=== PATIENT | male | born 1965 | race Caucasian/White ===

== ENCOUNTER 2017-11-06 11:13 | Outpatient (CLI) | payer BC ==
--- NOTE | 2017-11-06 15:53 | CT ---
CT BRAIN WITHOUT CONTRAST: HISTORY: Right-sided weakness. FINDINGS: There is encephalomalacia in the left MCA territory, consistent with an old infarction. Mild compens atory ipsilateral dilatation of the left lateral ventricle is seen. No evidence of acute infarct, he morrhage, midline shift, or abnormal extraaxial fluid collections is noted. The bony calvarium is in tact. There is mild mucosal disease in the paranasal sinuses. IMPRESSION: 1. 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 2. No evidence of acute intracranial process. This study was interpreted in consultation with Dr. Derick Beavers (neuroradiologist), who concurs. POS: [facility]
--- NOTE | 2017-11-16 13:47 | EEG ---
Referring Physician: DR. JEY MONTE EEG # [id number] PROCEDURE: Outpatient electroencephalogram NAME OF PATIENT: Tal Bahena DATE EEG DONE: 11/06/2017. INDICATION: Seizures. REPORT: This is a 22-channel digital EEG recording utilizing 10-20 international electrode placement system on a patient with stroke with right hemiparesis with subsequent seizures. During wakefulness, the background activity is asymmetric between 2 hemispheres. In the right hemisphere, the background activity consists of low to moderate amplitude dominant alpha rhythm of 8-9 Hz, it is reactive. In the left hemisphere, the background activity consists of low to moderate amplitude theta activity of 5-6 Hz mixed with myogenic activity, it is reactive in nature. DROWSINESS AND SLEEP: Subject is able to attain periods of drowsiness with decreased myogenic activity and diffuse theta activity, there is no clear sleep recorded during this EEG, left hemisphere slowing is noted. ABNORMALITIES: Slowing noted in the left hemisphere throughout the EEG, however , no clear epileptiform activity noted. No electrographic seizures noted. INDUCTION: HYPERVENTILATION: Could not be performed. PHOTIC STIMULATION: No photic drive seen. EK per minute. IMPRESSION: This EEG is considered abnormal. There is nonspecific dysfunction noted in the left cerebral hemisphere, underlying structural pathology should be considered. However, there is no clear epileptiform activity noted. No electrographic seizures noted. Clinical correlation recommended. Operational Risk Analyst:EUNICE Roller Maker: EEG.ABHINAV MARSHALL
== END 2017-11-06 11:14 | disposition home or self-care (01) ==
LOC: EEG 11:13
PROVIDERS: ATTEND Student in an Organized Health Care Education/Training Program
DX: I63.9 Cerebral infarction, unspecified (principal); M62.81 Muscle weakness (generalized)
CPT/HCPCS: 70450; 95816

== ENCOUNTER 2018-06-04 19:47 | Observation (INO) | payer BC, MEDICARE ==
[2018-06-04] MEDS ORDERED: Lidocaine 1% w/Epinephrine 1:100K 20 ML VIAL ONE (21:10)
--- NOTE | 2018-06-04 21:53 | CT ---
CT OF BRAIN PERFORMED WITHOUT CONTRAST ENHANCEMENT: 06/04/18 HISTORY: Head injury status post fall. COMPARISON: 11/06/17 study. Encephalomalacia change in the left middle cerebral artery territory is again noted. There is signs o f intracerebral hemorrhage or extra-axial fluid collections. Mastoid air cells and visualized sinuses are clear. IMPRESSION: 1. No acute intracranial abnormalities. 2. Old left MCA infarct. POS: [facility]
[2018-06-04 22:03] LABS: #Basophils 0.1 thou/uL (0.0-0.2); #Lymphocytes 1.8 thou/uL (1.20-3.40); #Monocytes 1.1 thou/uL (0.11-0.59); #Neutrophils 9.8 thou/uL (1.40-6.50); %Basophils 0.5 % (0.0-1.0); %Eosinophils 0.3 % (0.0-10.0); %Lymphocytes 13.9 % (21.0-51.0); %Monocytes 8.8 % (0.0-10.0); %Neutrophils 76.4 % (42.0-75.0); Hemoglobin 16.1 g/dL (14.0-18.0); Mean Corpuscular HGB CONC 33.8 g/dL (32.0-36.0); Mean Corpuscular Hemoglobin 30.2 pg (27.0-31.0); Mean Corpuscular Volume 89.6 fL (78.0-98.0); Mean Platelet Volume 8.3 fL (7.4-10.4); Platelet Count 226 thou/uL (130-400); RBC Distribution Width 12.9 % (11.5-14.5); Red Blood Cell (RBC) Count 5.33 mill/uL (4.70-6.10); White Blood Cell (WBC) Count 12.8 thou/uL (4.8-10.8)
--- NOTE | 2018-06-04 22:17 | RAD ---
RIGHT TIBIA AND FIBULA THREE VIEWS: 06/04/18 HISTORY: Patient fell down stairs. The bones appear slightly demineralized. I do not see any signs of fracture or dislocation. Vascular calcifications are noted. IMPRESSION: No evidence of fracture. POS: [facility]
[2018-06-04 22:24] LABS: ALT (SGPT) 68 U/L (8-55); AST (SGOT) 46 U/L (5-34); Albumin 4.7 g/dL (3.5-5.0); Alkaline Phosphatase 111 U/L (40-150); Anion Gap 15 mmol/L (10-20); BUN (Urea Nitrogen) 12 mg/dL (8.4-25.7); Calc. Creatinine Clearance 0 mL/min (70-130); Calcium 9.5 mg/dL (7.8-10.44); Carbon Dioxide 22 mmol/L (22-29); Chloride 106 mmol/L (98-107); Estimated GFR-MDRD Greater than 90; Globulin 2.6 g/dL (2.4-3.5); Glucose 146 mg/dL (70-105); Protein, Total 7.3 g/dL (6.0-8.3); Sodium 139 mmol/L (136-145)
[2018-06-04 22:26] LABS: INR-International Normal Ratio 1.9; PTT 33.5 SEC (22.9-36.1); Prothrombin Time 22.3 SEC (12.0-14.7)
[2018-06-04] MEDS ORDERED: HYDROcodone/Acetaminophen 10/325 mg Tablet ONE (22:53)
[2018-06-05] MEDS ORDERED: Ondansetron HCl/PF 4 MG/2 ML Vial IVP PRN ×2 (01:41→02:34)
[2018-06-05] MEDS ORDERED: Ondansetron ODT 4 MG TAB SL PRN (01:41)
[2018-06-05] MEDS ORDERED: HYDROcodone/Acetaminophen 5/325 mg Tablet PO PRN ×2 (01:41)
[2018-06-05 02:08] VITALS: BMI 26.1
[2018-06-05] MEDS ORDERED: Benzonatate 100 MG CAP PO PRN (02:34)
[2018-06-05] MEDS ORDERED: Senokot 8.6 MG TAB PO PRN (02:34)
[2018-06-05] MEDS ORDERED: Bisacodyl 5 MG TAB PO PRN (02:34)
[2018-06-05] MEDS ORDERED: Diabetic Tussin 200 MG/10 ML UDCUP PO PRN (02:34)
[2018-06-05] MEDS ORDERED: Acetaminophen 325 MG TAB PO PRN (02:34)
[2018-06-05] MEDS ORDERED: hydrALAZINE 20 MG/ML VIAL SLOW IVP PRN (02:34)
[2018-06-05] MEDS ORDERED: Mag-Al 1200 mg/1200 mg/30 ML UDCUP PO PRN (02:34)
[2018-06-05] MEDS ORDERED: Loratadine 10 MG TAB PO PRN (02:34)
[2018-06-05] MEDS ORDERED: Calcium Carbonate 500 MG ChewTAB PO PRN (02:34)
--- NOTE | 2018-06-05 03:51 | HP ---
DATE OF ADMISSION: 06/05/2018 PRIMARY CARE PHYSICIAN: Dr. Kennedy Watkins. CHIEF COMPLAINT: Falls and near syncope. HISTORY OF PRESENTING ILLNESS: Mr. Bahena is a very pleasant 52-year-old male with past medical histo ry of CVA in 2014 after aortic valve surgery with residual right-sided hemiparesis who presented to [facility] ER with the above-mentioned complaint. History is mainly obtained by the patient himself and supp lemented by his mother present in the room. According to Mr. Bahena, he uses a walker and a cane at the house to move around. Yesterday evening w hile he was going down to stairs, he had a mechanical fall in the last step. He does not use the can e to go up and down the stairs, but uses to hold with the railing. He denies any chest pain, palpita tion, any prodromal symptoms. He denies any loss of consciousness. He denies any recent illnesses o r new symptoms. He presented to the ER, as he is on Coumadin and has sustained a scalp laceration. In the emergency room, he was hemodynamically stable with a blood pressure 103/70, pulse of 82, respi rations 20, saturating 95% on room air and afebrile. General evaluation included CT scan of the head , which was unremarkable. He was given pain medications. His labs were checked and his INR is 1.9. He does have evidence of mild leukocytosis with WBCs of 12 .8 with 76% neutrophils. His AST and ALT are mildly elevated at 46 and 68. He is now being admitted under observation status for repeat CT scan of the brain in the morning, as he is on Coumadin and for frequent neuro checks. At this time, it is not clear whether he actually l ost consciousness and was presyncopal. PAST MEDICAL HISTORY: 1. History of CVA in 2015 after aortic valve surgery. 2. Aortic valve replacement. 3. History of seizure disorder. PAST SURGICAL HISTORY: Aortic valve replacement in 2014 at [facility]. SOCIAL HISTORY: He lives at home with family. No history of drug, tobacco, or alcohol abuse. FAMILY HISTORY: No significant family history of premature coronary artery disease, diabetes, or can cer. ALLERGIES: PENICILLIN. CURRENT MEDICATIONS: Atorvastatin 40 mg daily, aspirin 81 mg daily, Baclofen 10 mg p.o. b.i.d., calc ium carbonate 600 mg daily, cholecalciferol 1 tablet daily, Keppra 1000 mg p.o. b.i.d., multivitamin daily, and warfarin 3 mg daily. REVIEW OF SYSTEMS: A 10-point review of systems is done and is negative except for those mentioned i n the history and physical. Constitutional: Weight loss or gain, ability to conduct usual activitie s. Skin: Rash, itching. Eyes: Double vision, pain. ENT/Mouth: Nose bleeding, neck stiffness, pa in, tenderness. Cardiovascular: Palpitations, dyspnea on exertion, orthopnea. Respiratory: Shortn ess of breath, wheezing, cough, hemoptysis, fever, or night sweats. Gastrointestinal: Poor appetite , abdominal pain, heartburn, nausea, vomiting, constipation, or diarrhea. Genitourinary: Urgency, f requency, dysuria, nocturia. Musculoskeletal: Pain, swelling. Neurologic/Psychiatric: Anxiety, de pression. Allergy/Immunologic: Skin rash, bleeding tendency. LABORATORY EXAMINATION: CBC shows WBCs 12.8 with 76% neutrophils. INR 1.9. Serum chemistry: Gluco se 146, AST, ALT mildly elevated at 46 and 68 respectively with normal total bilirubin, alkaline phos phatase. CT scan of the brain by my review has no evidence of any hemorrhage, mass, or acute infarct ion. X-ray of his tibia and fibula of the right side is negative for any fracture. PHYSICAL EXAMINATION: VITAL SIGNS: Most recent vital signs: Temperature 98.7, pulse of 88, respirations 22, saturating 10 0% on room air, blood pressure 116/76. GENERAL: No acute distress. Awake, alert, oriented x3. Family is at bedside. HEENT: Mucous membranes slightly dry. No oropharyngeal exudate or erythema. Head is normocephalic, atraumatic. Pupils equal, reactive to light and accommodation. A 3.5 cm scalp laceration is notice d. NECK: Supple without any lymphadenopathy, JVD, or bruit. CHEST: Clear to auscultation without any wheezing, rales, or rhonchi. CARDIOVASCULAR: Rhythm is regular without any murmur, rubs, or gallops. ABDOMEN: Soft, nontender, nondistended with positive bowel sounds. EXTREMITIES: Free of any cyanosis, clubbing, or edema. NEUROLOGIC: Dense right-sided hemiparesis involving the right arm and right leg is noticed. He also has difficulty with his speech with some halting speech, but no significant expressive aphasia notic ed. SKIN: No Free of any rashes or bruises. Feels warm and dry to touch. PSYCHIATRIC: Normal affect. IMPRESSION AND PLAN: 1. Near syncope. At this time, it is unclear whether the patient lost the consciousness or not. Gi elvis the fact that he has aortic valvular surgery and history of stroke. He will be admitted for obse rvation status. We will obtain a transthoracic echocardiogram and obtain a carotid Doppler ultrasoun d. We will repeat the CT scan of the brain in the morning, as the patient is on Coumadin. He will r equire frequent neuro checks. We will also obtain the urinalysis and obtain cardiac enzymes as well. There was no evidence of seizure episodes at this time. We will resume his Keppra for now. 2. History of stroke. Restart aspirin with statins. 3. History of aortic valve replacement. Restart Coumadin and recheck INR in the morning. 4. History of seizure disorder. Resume Keppra for now. No evidence of any breakthrough seizure. 5. Deep venous thrombosis and gastrointestinal prophylaxis. 6. Code status: FULL CODE discussed with the patient. DISPOSITION: Mr. Bahena is currently being admitted on observation status for neurological observatio n. He is currently under observation status. Further management will depend upon his clinical cours e.
[2018-06-05] MEDS: traMADol HCl 50 MG TAB PO PRN ×3 (03:54→22:05)
[2018-06-05 05:28] LABS: #Lymphocytes 0.9 thou/uL (1.20-3.40); #Monocytes 0.9 thou/uL (0.11-0.59); #Neutrophils 11.8 thou/uL (1.40-6.50); %Lymphocytes 6.3 % (21.0-51.0); %Monocytes 6.5 % (0.0-10.0); %Neutrophils 87.2 % (42.0-75.0); Hemoglobin 14.9 g/dL (14.0-18.0); Mean Corpuscular HGB CONC 34.5 g/dL (32.0-36.0); Mean Corpuscular Hemoglobin 30.6 pg (27.0-31.0); Mean Corpuscular Volume 88.7 fL (78.0-98.0); Mean Platelet Volume 7.9 fL (7.4-10.4); Platelet Count 217 thou/uL (130-400); RBC Distribution Width 12.9 % (11.5-14.5); Red Blood Cell (RBC) Count 4.88 mill/uL (4.70-6.10); White Blood Cell (WBC) Count 13.5 thou/uL (4.8-10.8)
[2018-06-05 05:33] LABS: INR-International Normal Ratio 1.9; Prothrombin Time 21.4 SEC (12.0-14.7)
[2018-06-05 05:40] LABS: Anion Gap 15 mmol/L (10-20); BUN (Urea Nitrogen) 13 mg/dL (8.4-25.7); Calc. Creatinine Clearance 108 mL/min (70-130); Calcium 9.3 mg/dL (7.8-10.44); Carbon Dioxide 24 mmol/L (22-29); Chloride 105 mmol/L (98-107); Estimated GFR-MDRD 85; Glucose 152 mg/dL (70-105); Potassium 4.7 mmol/L (3.5-5.1); Sodium 139 mmol/L (136-145)
[2018-06-05 05:45] LABS: Troponin I Less than 0.010 ng/mL (< 0.028)
[2018-06-05] MEDS: Multivitamin W/ Minerals 1 TAB PO SCH (08:43)
[2018-06-05] MEDS: Baclofen 10 MG TAB PO SCH ×3 (08:43→22:06)
[2018-06-05] MEDS: levETIRAcetam 500 MG TAB PO SCH ×2 (08:43→22:04)
[2018-06-05] MEDS: Calcium Carbonate 600 MG TAB PO SCH (08:43)
[2018-06-05] MEDS ORDERED: Enoxaparin Sodium 40 MG/0.4 ML SYRINGE SC SCH (09:00)
--- NOTE | 2018-06-05 12:15 | PDOC.PN ---
- Subjective Encounter Start Date: 06/05/18 Encounter Start Time: 12:12 Mr. Bahena was seen today in follow-up of recent fall while on coumadin. He is complaining of some pain in his right leg. He denies any headache, or feeling dizzy or lightheaded. He denies chest pain or dyspnea. - Objective MAR Reviewed: Yes Vital Signs & Weight: Vital Signs (12 hours) Temp Pulse Resp BP Pulse Ox 06/05/18 08:00 97.6 F 108 H 16 120/77 90 L 06/05/18 03:15 97.9 F 107 H 20 98/67 91 L 06/05/18 02:06 98.7 F 88 22 H 116/76 100 06/05/18 01:25 97.9 F 107 H 20 Weight Weight 180 lb 14.4 oz I&O: 06/04/18 06/05/18 06/06/18 06:59 06:59 06:59 Intake Total 360 Output Total 50 Balance 310 Result Diagrams: 06/05/18 05:06 06/05/18 05:06 Phys Exam - Physical Examination HEENT: PERRLA Respiratory: no wheezing, no rales, no rhonchi, clear to auscultation bilateral Cardiovascular: RRR, no significant murmur, no rub Gastrointestinal: soft, non-tender, positive bowel sounds Musculoskeletal: no edema Dx/Plan (1) Fall (on) (from) other stairs and steps, initial encounter Code(s): W10.8XXA - FALL (ON) (FROM) OTHER STAIRS AND STEPS, INITIAL ENCOUNTER Status: Acute (2) History of aortic valve replacement Code(s): Z95.2 - PRESENCE OF PROSTHETIC HEART VALVE Status: Acute (3) Chronic anticoagulation Code(s): Z79.01 - AIRSET MOLDER (CURRENT) USE OF ANTICOAGULANTS Status: Acute - Plan * Fall- in hearing the patient's story, it sounds like he had an accidental fall and not syncope. * Awaiting the Radiologist read on the CT scan of the brain - repeat- * Echo and carotid dopplers are pending * He has a rapid heart rate when he stands, it is narrow complex, and regular- I suspect sinus tachycardia, but AFIB can not be excluded- will check a 12 lead , and see. If it is sinus then would recommend close follow-up with Dr. Morton for possible event or holter monitor * Hopefully home this evening.
--- NOTE | 2018-06-05 12:52 | CT ---
BRAIN CT SCAN WITHOUT IV CONTRAST: HISTORY: A 52-year-old male with a history of a fall while on blood thinners. COMPARISON: 06/04/2018 FINDINGS: Again noted is a large area of encephalomalacia in the left middle cerebral artery distribution, with some dilatation of the left lateral ventricle. No mass or significant midline shift. No acute hemo rrhage. IMPRESSION: No acute hemorrhage. Large left middle cerebral artery distribution infarct. Stable from prior 05/10 study. POS: [facility]
--- NOTE | 2018-06-05 13:12 | ULT ---
CAROTID DOPPLER ULTRASOUND: 06/05/2018 HISTORY: Syncope. TECHNIQUE: Carcamo-scale, color-flow, Doppler evaluation, and spectral analysis of the bilateral carotid arteries i s performed with 2D imaging. FINDINGS: There is mild calcified atherosclerotic plaque seen within the distal common carotid arteries and in the region of the proximal internal carotid arteries, bilaterally. Wave-form analysis suggests a mild increase in heart rate, but this would be better assessed clinical ly, as it is unable to be adequately evaluated on this exam. There is less than 50% maximal stenosis in the bilateral internal carotid arteries, according to the peak systolic velocities and the ICA/CC A ratios. The peak systolic velocity in the right ICA is 64.3 cm per second with an ICA/CCA ratio of 0.98. The peak systolic velocity in the left ICA is 49.9 cm per second, with an ICA/CCA ratio of 0. 69. Antegrade flow is demonstrated in the vertebral arteries bilaterally. IMPRESSION: No hemodynamically significant stenosis in the bilateral internal carotid arteries. POS: [facility]
[2018-06-05] MEDS ORDERED: Tamsulosin HCl 0.4 MG CAP PO SCH ×2 (16:30→17:15)
[2018-06-05] MEDS ORDERED: Warfarin Sodium 3 MG TAB PO SCH (17:00)
[2018-06-05 17:35] LABS: Bilirubin Moderate (Negative); Blood, Urine Large (Negative); Clarity TURBID (Clear); Glucose, Urine (Dipstick) Negative (Negative); Leukocyte Small (Negative); Nitrite Negative (Negative); Protein, Urine (Dipstick) 100 mg/dL (Neg-Trace); Specific Gravity, Urine 1.033 (1.002-1.036); Urobilinogen 0.2 mg/dL (0.2-1.0); pH, Urine 5.5 (5.0-9.0)
[2018-06-05 17:38] LABS: Bacteria/HPF None Seen HPF (None Seen); Hyaline Casts/LPF 0-3 HYALINE CAST LPF (0-3 Hyaline); Pathc Cast-AUWi Flag 0.36 (0-2.49); RBC/HPF GREATER THAN 50-TNTC HPF (0-3); Squamous Epithelial 0-3 HPF (0-3)
[2018-06-05] MEDS ORDERED: Atorvastatin Calcium 40 MG TAB PO SCH (21:00)
[2018-06-06 05:39] LABS: Prothrombin Time 23.1 SEC (12.0-14.7)
--- NOTE | 2018-06-06 06:08 | DIS ---
DATE OF ADMISSION: 06/05/2018 DATE OF DISCHARGE: 06/05/2018 PRIMARY CARE PHYSICIAN: Kennedy Watkins D.O. DISCHARGE DISPOSITION: Home. PRIMARY DISCHARGE DIAGNOSES: 1. Accidental fall. 2. Chronic anticoagulation on Coumadin. 3. History of previous cerebrovascular accident. 4. History of aortic valve replacement with mechanical prosthetic valve. 5. History of seizure disorder. 6. Volume depletion. DISCHARGE MEDICATIONS: These are the same as that on admission and include warfarin 3 mg as directed , multivitamin daily, Keppra 1000 mg twice daily, vitamin D 1000 units daily, calcium 600 mg daily, b aclofen 10 mg twice a day, Lipitor 40 mg daily, and aspirin 81 mg a day. PROCEDURES DONE DURING ADMISSION: The patient had a CT scan of the brain on the and no evidence of any acute bleed. The patient had a repeat CT scan the following day with no evidence of any blee d. The patient had a bilateral carotid Dopplers showing no hemodynamically significant stenosis. He also had an echocardiogram in which the ejection fraction was estimated at 60%-65%. There was a bio prosthetic valve, it is mechanical type that was not well seen. The gradient to the valve did not licea ggest stenosis and there was mild tricuspid regurgitation. CODE STATUS: FULL CODE. ALLERGIES: PENICILLIN. HOSPITAL COURSE: Mr. Bahena is a pleasant 52-year-old gentleman who presented to the emergency room a fter suffering a fall which was accidental. He was coming down the stairs and fell off the lower rd p, no evidence of any syncope. However, since he is on Coumadin and there was concern that he hit hi s head, he was monitored in the hospital in observation overnight. There was no neurological decline . The CT scan was negative on the following day. He had some variable heart rate, which appears to be sinus tachycardia. He was instructed to follow up with his nail technician teacher, Dr. Morton to have this evaluated as it is unclear whether or not this could be a supraventricular tachycardia and his heart rates did bounce up as high as 120s and 130s, but will quickly come back down. This was also mostly when he was up moving around. Otherwise, the patient was clinically stable and can be discharged rhea e today.
[2018-06-06 07:44] VITALS: BP 108/59; TEMP 98.4
[2018-06-06] MEDS: traMADol HCl 50 MG TAB PO PRN (08:48)
[2018-06-06] MEDS: levETIRAcetam 500 MG TAB PO SCH (08:49)
[2018-06-06] MEDS: Multivitamin W/ Minerals 1 TAB PO SCH (08:49)
[2018-06-06] MEDS: Calcium Carbonate 600 MG TAB PO SCH (08:49)
[2018-06-06] MEDS: Baclofen 10 MG TAB PO SCH (08:52)
[2018-06-06] MEDS ORDERED: Tamsulosin HCl 0.4 MG CAP PO SCH (09:00)
--- NOTE | 2018-06-07 13:36 | EKG ---
Test Reason : ROUTINE Blood Pressure : / mmHG Vent. Rate : 104 BPM Atrial Rate : 104 BPM P-R Int : 218 ms QRS Dur : 100 ms QT Int : 312 ms P-R-T Axes : 022 -02 153 degrees QTc Int : 410 ms Sinus tachycardia with 1st degree A-V block Possible Inferior infarct , age undetermined Abnormal ECG No previous ECGs available Confirmed by DR. Mat CHOUDHURY MD ([id number]) on 06/07/2018 1:35:32 PM Referred By: Confirmed By:DR. Mat CHOUDHURY MD
== END 2018-06-06 09:59 | disposition home or self-care (01) ==
LOC: ERS 19:47 → 2SE 06-05 01:09
PROVIDERS: ADMIT Internal Medicine; ATTEND Internal Medicine
DX: R55 Syncope and collapse (principal); I69.351 Hemiplegia and hemiparesis following cerebral infarction affecting right dominant side; G40.909 Epilepsy, unspecified, not intractable, without status epilepticus; E86.9 Volume depletion, unspecified; Z79.82 Long term (current) use of aspirin; Z79.01 Long term (current) use of anticoagulants; Z79.899 Other long term (current) drug therapy; Z88.0 Allergy status to penicillin; Z95.2 Presence of prosthetic heart valve; W10.8XXA Fall (on) (from) other stairs and steps, initial encounter
CPT/HCPCS: 12002; 70450 ×2; 73590; 80048; 80053; 81001; 82553; 84484; 85025 ×2; 85610 ×3; 85730; 93005; 93306; 93880; 96374; 97139; 99285; G0378; 36415; 93010; A4216; J2001; J2270; Q0162

== ENCOUNTER 2018-06-07 16:11 | Outpatient (CLI) | payer MEDICARE | END 2018-06-07 16:12 | disposition home or self-care (01) | LOC: BICRAD 16:11 | PROVIDERS: ATTEND Family Medicine | DX: S30.0XXD Contusion of lower back and pelvis, subsequent encounter (principal); M87.851 Other osteonecrosis, right femur; M16.11 Unilateral primary osteoarthritis, right hip ==

== ENCOUNTER 2018-06-16 12:27 | Outpatient (CLI) | payer MEDICARE | END 2018-06-16 12:28 | disposition home or self-care (01) | LOC: BICCT 12:27 | PROVIDERS: ATTEND Family Medicine | DX: M54.5 Low back pain (principal); M47.896 Other spondylosis, lumbar region; M48.061 Spinal stenosis, lumbar region without neurogenic claudication; M47.897 Other spondylosis, lumbosacral region; W10.8XXD Fall (on) (from) other stairs and steps, subsequent encounter | CPT/HCPCS: 72131 ==

== ENCOUNTER → 2019-04-27 | Day surgery (SDC) | payer MEDICARE ==
[2019-04-26 11:27] VITALS: BMI 24.3
[~2019-04-27] MED LIST: Lidocaine 1% PF 5 ML VIAL ONE; PROPOFOL 200 MG/20 ML VIAL ONE; ePHEDrine 50 MG/ML VIAL ONE; ePHEDrine/0.9% NaCl/PF SYRINGE 50 mg/10 ml ONE
--- NOTE | 2019-04-27 11:48 | OP ---
DATE OF PROCEDURE: 04/27/2019 PRIMARY CARE PHYSICIAN: Kennedy Watkins DO [employer] APPRENTICE SURGEON: None. PROCEDURES PERFORMED: Screening colonoscopy, with snare polypectomy. INDICATION: A 53-year-old man, here for first ever risk screening colonoscopy. He has never had a colonoscopy in the past. MEDICATIONS: See Anesthesia record. FINDINGS: After discussion of the risks, benefits, and alternatives of the procedure, informed consent was obtained and witnessed. Pre-endoscopic cardiopulmonary examination was satisfactory. Time-out was performed before sedation was achieved. Sedation was achieved with Anesthesia assistance in the endoscopy unit. Digital rectal exam was performed, which was unremarkable. A Pentax adult colonoscope was inserted into the anus and passed forward to the cecum in the usual fashion. The cecal base was identified by the appendiceal orifice as well as the ileocecal valve. The terminal ileum was intubated and the ileal mucosa appeared normal. The colonoscope was slowly withdrawn in a gradual and circumferential manner with careful examination of the entire colonic mucosa. The quality of the prep was good. In the descending colon, there was a single sessile polyp measuring 2 mm in diameter. This was completely removed with cold snare and retrieved for pathology. The remainder of the colonoscopy was normal. Retroflexion in the rectum was normal. The colonoscope was completely withdrawn and the patient allowed to recover. The patient tolerated the procedure well. There were no immediate postprocedure complications. IMPRESSION: 1. Single 2 mm descending colon polyp, completely removed with cold snare and retrieved for pathology. 2. Otherwise normal colonoscopy to the terminal ileum. RECOMMENDATIONS: 1. Follow up pathology on the colon polyp. 2. Repeat colonoscopy interval to be determined based on pathology. If the polyp is hyperplastic, repeat colonoscopy in 10 years. If the polyp is an adenomatous polyp, repeat colonoscopy in 5 years. 3. The patient can resume his Coumadin tomorrow. Job ID: [id number]
== END ==
LOC: SDC 08:38
PROVIDERS: ATTEND Internal Medicine
PROC: 0DBM8ZZ Excision of Descending Colon, Via Natural or Artificial Opening Endoscopic (ICD-10-PCS; principal; 2019-04-27)
DX: Z12.11 Encounter for screening for malignant neoplasm of colon (principal); D12.4 Benign neoplasm of descending colon; E78.00 Pure hypercholesterolemia, unspecified; Z79.82 Long term (current) use of aspirin; Z79.899 Other long term (current) drug therapy; Z86.73 Personal history of transient ischemic attack (TIA), and cerebral infarction without residual deficits; Z88.0 Allergy status to penicillin
CPT/HCPCS: 88305; J2001; J2704; J3490

== ENCOUNTER 2025-10-03 10:55 | Outpatient (CLI) | payer MEDICARE | END 2025-10-03 10:56 | disposition home or self-care (01) | LOC: BICRAD 10:55 | PROVIDERS: ATTEND Family Medicine | DX: M79.651 Pain in right thigh (principal); M16.11 Unilateral primary osteoarthritis, right hip ==